=== PATIENT | female | born 1970 | race Caucasian/White ===

== ENCOUNTER → 2016-12-03 | Outpatient (CLI) | payer OTHER ==
[~2016-12-03] VITALS: Ht 161.3 cm; Wt 83.0 kg
[~2016-12-03] MED LIST: ALBU17IN INH; ALBUTEROL SULFATE 2.5 MG/0.5 ML INH NEB SOLN INH ONE; ANOR1AER INH; D5W 1,000 ML IV SCH; EPINEPHrine 1MG/10ML SYRINGE 1.5IN As Ordered ONE; LIDOCAINE 1% MDV 20ML VIAL As Ordered ONE; LIDOCAINE 4% INJ 5 ML AMP As Ordered ONE; LIDOCAINE 4% INJ 5 ML AMP INH ONE; LIDOCAINE VISCOUS 2% SOLN 15ML UDC As Ordered ONE; LISI-538 PO; MIDAZOLAM INJ 2 MG/2 ML VIAL (J2250) As Ordered ONE; MIDAZOLAM INJ 2 MG/2 ML VIAL (J2250) IV ONE; OMEP40CA2 PO; TRAM50TA2 PO; [UNRECOGNIZED DRUG - OTHER]; [UNRECOGNIZED DRUG - OTHER]; fentaNYL 100 MCG/2 ML INJECTION (J3010) As Ordered ONE; fentaNYL 100 MCG/2 ML INJECTION (J3010) IV ONE
--- NOTE | 2016-12-03 11:56 | RO ---
DATE OF PROCEDURE: 12/03/2016 PREPROCEDURE DIAGNOSIS: Abnormal chest CT, right upper lobe mass. POSTPROCEDURE DIAGNOSIS: Abnormal chest CT, right upper lobe mass. FINDINGS: Large obstructing right upper lobe mass. PROCEDURE: Bronchoscopy with endobronchial biopsy and endobronchial ultrasound with fine-needle aspiration. PROCEDURALIST: Dr. Wallace PACKAGE COLLECTOR: None. ANESTHESIA: 360 mg of topical lidocaine, 14 mg IV Versed, 150 mcg IV fentanyl. SPECIMENS OBTAINED: 1. Endobronchial biopsy right upper lobe. 2. Cytobrush right upper lobe. 3. Fine needle aspiration of subcarinal node. ESTIMATED BLOOD LOSS: 5-10 mL REPLACED: None. DRAINS: None. COMPLICATIONS: None. DESCRIPTION OF PROCEDURE: Informed consent was reviewed in the preoperative area. The patient had all of her questions answered. She was brought back to the outpatient procedure area, suite [address], and anesthetization of the posterior pharynx was then initiated was 4% lidocaine. She had a very prominent gag reflex, therefore Cetacaine spray was used. Conscious sedation was initiated. She required large amounts of Versed for sedation. Despite this had significant coughing throughout the procedure. The coughing was so significant it made it difficult for biopsies. Endobronchial biopsies were taken of the right upper lobe lesion. All airways were examined. Marlen was full. Trachea was midline. Right and left mainstem bronchus was normal. There was a large pedunculated mass obstructing the entire right upper lobe. The spur between the right upper lobe and bronchus intermedius was enlarged and splayed. Right middle lobe and right lower lobe were without endobronchial lesions. RB 4 through 10 was normal without abnormality. The left mainstem was normal. LB 1 through 10 was also normal without endobronchial lesions. The bronchoscope was then advanced into the right mainstem bronchus with view of the right upper lobe endobronchial biopsies were performed. There is quite a bit of bleeding. Two doses of epinephrine were applied to the site. Cytology brush was obtained of this area. After a significant difficulty with biopsies due to coughing, I reanesthetized the airway with lidocaine. Again, additional endobronchial biopsies were performed. The bronchoscope was then removed. FNA was attempted once of the subcarinal node. A sample was taken. Due to the amount of coughing and thrashing the patient was doing despite 14 mg of IV Versed and 150 of IV fentanyl, it was deemed that it was better to stop the procedure and if further sampling is required this will need to be done under general anesthesia. There were no observed complications. Postprocedure chest x-ray is pending.
[2016-12-03 12:17] VITALS: BP 135/76
--- NOTE | 2016-12-03 12:49 | REP ---
PORTABLE CHEST X-RAY: Single view. HISTORY: Post bronchoscopy, rule out pneumonia. No comparison chest x-ray. FINDINGS: There is a large opacity in the right apex to the right of the trachea. This may be a mass, possibly pleural-based. There is no evidence of pneumothorax or hydrothorax. Heart is not enlarged. The left lung is clear. IMPRESSION: Large right apical pleuroparenchymal opacity. No evidence of pneumothorax or hydrothorax seen. Signed by Sly Lewis MD 12/03/2016 02:30 P
== END | disposition home or self-care (01) ==
LOC: M OPP 09:31 → EDSTATUS 09:45
PROVIDERS: ATTEND Internal Medicine Pulmonary Disease
DX: C34.11 Malignant neoplasm of upper lobe, right bronchus or lung (principal); J45.909 Unspecified asthma, uncomplicated; J43.1 Panlobular emphysema; M51.9 Unspecified thoracic, thoracolumbar and lumbosacral intervertebral disc disorder; M19.90 Unspecified osteoarthritis, unspecified site; I10 Essential (primary) hypertension; F17.218 Nicotine dependence, cigarettes, with other nicotine-induced disorders; Z88.0 Allergy status to penicillin; Z88.8 Allergy status to other drugs, medicaments and biological substances; Z91.030 Bee allergy status
CPT/HCPCS: 31623; 31652; 71010; 88104; 88172; 88173; 88305; 94640; J2250; J3010

== ENCOUNTER → 2016-12-31 | Outpatient (CLI) | payer OTHER ==
[~2016-12-31] MED LIST changes: -ALBUTEROL SULFATE 2.5 MG/0.5 ML INH NEB SOLN INH ONE; -D5W 1,000 ML IV SCH; -EPINEPHrine 1MG/10ML SYRINGE 1.5IN As Ordered ONE; +ISOVUE-370 76% 100ML VIAL (Q9967) As Ordered ONE; -LIDOCAINE 1% MDV 20ML VIAL As Ordered ONE; -LIDOCAINE 4% INJ 5 ML AMP As Ordered ONE; -LIDOCAINE 4% INJ 5 ML AMP INH ONE; -LIDOCAINE VISCOUS 2% SOLN 15ML UDC As Ordered ONE; -MIDAZOLAM INJ 2 MG/2 ML VIAL (J2250) As Ordered ONE; -MIDAZOLAM INJ 2 MG/2 ML VIAL (J2250) IV ONE; -fentaNYL 100 MCG/2 ML INJECTION (J3010) As Ordered ONE; -fentaNYL 100 MCG/2 ML INJECTION (J3010) IV ONE
--- NOTE | 2016-12-31 10:03 | REP ---
CT of the chest with IV contrast: There are no comparison chest CTs. There is a comparison portable chest dated 12/03/2016. There is a right suprahilar mass extending into the right upper lobe posteromedially. The mass measures about 5 cm craniocaudad by 2.4 cm transversely by 2.2 cm AP. There is right hilar adenopathy. There is mediastinal adenopathy. There is no axillary adenopathy. There are no other masses. There are no infiltrates or effusions. The thoracic aorta is unremarkable. Cardiac size is normal. There is no pericardial effusion. Upper abdomen: There is hepatosteatosis. The visualized portions of the gallbladder, pancreas and spleen are unremarkable. There is no adrenal mass. Impression: Right suprahilar mass with the right hilar and mediastinal adenopathy. Hepatosteatosis. Signed by Kyler Hernandez MD 12/31/2016 09:54 A
== END ==
LOC: M RAD 08:25
PROVIDERS: ATTEND Thoracic Surgery (Cardiothoracic Vascular Surgery)
DX: C7A.090 Malignant carcinoid tumor of the bronchus and lung (principal); K76.0 Fatty (change of) liver, not elsewhere classified
CPT/HCPCS: 71260; Q9967

== ENCOUNTER → 2017-01-02 | Outpatient (CLI) | payer OTHER ==
[~2017-01-02] MED LIST changes: -ISOVUE-370 76% 100ML VIAL (Q9967) As Ordered ONE
--- NOTE | 2017-01-03 09:14 | REP ---
Whole body PET / CT scan: Comparison is the chest CT dated 12/31/2016. Whole body scan is performed from skull base to the upper thighs. Neck and supraclavicular areas: There are no hypermetabolic foci. There is artifactual uptake in the tongue and lingual tonsils. Chest: There is focal hypermetabolic uptake in the patient's known right suprahilar mass. The standard uptake value of this uptake is 5.1, compatible with neoplasm. The linear stranding emanating from this mass into the right upper lobe demonstrates no uptake. There are no foci in the mediastinum or the left hilus. There are no other lung foci. There are no other foci in the chest. Abdomen, pelvis and upper thighs: There are no hypermetabolic foci. There is artifactual droplet of radiotracer along the perineum posteriorly, likely contamination from radio tracer containing urine. Impression: The patient's known right suprahilar mass demonstrates hypermetabolic uptake. The linear stranding emanating from this mass into the right upper lobe demonstrates no uptake. There are no other hypermetabolic foci. The study is performed with 10.2 mCi of F 18 Signed by Kyler Hernandez MD 01/03/2017 09:05 A
== END ==
LOC: M RAD 15:32
PROVIDERS: ATTEND Thoracic Surgery (Cardiothoracic Vascular Surgery)
DX: C7A.090 Malignant carcinoid tumor of the bronchus and lung (principal)
CPT/HCPCS: 78815; A9552

== ENCOUNTER 2017-02-05 07:30 | Inpatient (IN) | payer OTHER ==
[~2017-02-05] VITALS: Ht 162.6 cm; Wt 88.6 kg
[2017-03-05] MEDS ORDERED: LORA10TA2 PO (10:39)
[2017-03-05] MEDS ORDERED: LISI-538 PO (10:39)
[2017-03-05] MEDS ORDERED: CYCL10TA PO (10:39)
[2017-03-05] MEDS ORDERED: OMEP20CA3 PO (11:30)
[2017-03-05 11:46] VITALS: BP 120/64
[2017-03-19] MEDS ORDERED: LR 1,000 ML IV ONE (09:15)
[2017-03-19] MEDS ORDERED: VANCOMYCIN HCL 1,000 MG, VIAL MATE ADAPTER 1 EACH in D5W 250 ML IV ONE (10:00)
[2017-03-19] MEDS ORDERED: MUPIROCIN 2% OINT 22 GM TUBE TOP ONE (10:00)
[2017-03-19] MEDS ORDERED: fentaNYL 100 MCG/2 ML INJECTION (J3010) As Ordered ONE (10:04)
[2017-03-19] MEDS ORDERED: MIDAZOLAM INJ 2 MG/2 ML VIAL (J2250) As Ordered ONE ×2 (10:04→11:43)
[2017-03-19] MEDS ORDERED: BUPIVACAINE HCL 0.5% 30 ML VIAL As Ordered ONE (10:33)
[2017-03-19] MEDS ORDERED: THROMBIN SOLN 20,000 UNITS KIT As Ordered ONE (10:33)
[2017-03-19] MEDS ORDERED: EPINEPHrine 1MG/10ML SYRINGE 1.5IN As Ordered ONE (10:33)
[2017-03-19] MEDS ORDERED: BUPIVACAINE LIPOSOME/PF 1.3% 20 ML VIAL (13.3MG/ML)(EXPAREL) As Ordered ONE (10:34)
[2017-03-19] MEDS ORDERED: MIDAZOLAM INJ 2 MG/2 ML VIAL (J2250) IV ONE ×2 (11:15→11:30)
[2017-03-19] MEDS ORDERED: fentaNYL 100 MCG/2 ML INJECTION (J3010) IV ONE (11:15)
[2017-03-19] MEDS ORDERED: WALLBOXKEY XX PRN (11:30)
[2017-03-19] MEDS ORDERED: METOCLOPRAMIDE INJ 10MG/2ML VIAL (J2765) IV PRN (11:30)
[2017-03-19] MEDS ORDERED: diphenhydrAMINE INJ 50MG/ML VIAL (J1200) IV PRN (11:30)
[2017-03-19] MEDS ORDERED: EPIDURAL/PCA KEYS XX PRN (11:30)
[2017-03-19] MEDS ORDERED: ONDANSETRON 4MG/2ML VIAL (J2405) IV PRN (11:30)
[2017-03-19] MEDS ORDERED: NALOXONE INJ 0.4 MG/1 ML VIAL (J2310) IV PRN (11:30)
[2017-03-19] MEDS ORDERED: fentaNYL 250 MCG/5 ML INJECTION (J3010) As Ordered ONE (11:43)
[2017-03-19] MEDS ORDERED: LIDOCAINE 2% INJ 100 MG/5 ML SDV (FOR ANES.) As Ordered ONE (13:11)
[2017-03-19] MEDS ORDERED: PROPOFOL 200 MG/20 ML VIAL As Ordered ONE (13:11)
[2017-03-19] MEDS ORDERED: METOCLOPRAMIDE INJ 10MG/2ML VIAL (J2765) As Ordered ONE (13:11)
[2017-03-19] MEDS ORDERED: ONDANSETRON 4MG/2ML VIAL (J2405) As Ordered ONE (13:12)
[2017-03-19] MEDS ORDERED: NEOSTIGMINE 1MG/ML 5 ML SYRINGE (J2710) As Ordered ONE (13:12)
[2017-03-19] MEDS ORDERED: BUPIVACAINE HCL 0.25% 30 ML VIAL As Ordered ONE (13:12)
[2017-03-19] MEDS ORDERED: ROCURONIUM BROMIDE 50 MG/5 ML VIAL/SYRINGE As Ordered ONE (13:12)
[2017-03-19] MEDS ORDERED: GLYCOPYRROLATE INJ 0.2 MG/ML 2 ML VIAL As Ordered ONE (13:12)
[2017-03-19] MEDS ORDERED: PHENYLephrine HCL 500 MCG/5 ML (100MCG/ML) SYRINGE (J2370) As Ordered ONE ×2 (15:53→16:29)
[2017-03-19] MEDS ORDERED: ACETAMINOPHEN TAB 650MG DOSE (2X325MG) PO PRN (16:30)
[2017-03-19] MEDS ORDERED: BISACODYL 10 MG SUPP PR PRN (16:30)
[2017-03-19] MEDS ORDERED: NORCO, ANEXSIA 5/325MG TABLET (HYDROcodone/ACETAMINOPHEN) PO PRN (16:30)
[2017-03-19] MEDS ORDERED: LEVALBUTEROL 1.25 MG/0.5 ML CONCENTRATE NEB NEB PRN (16:30)
[2017-03-19] MEDS ORDERED: PERCOCET 5MG/325MG TAB PO PRN ×2 (16:30)
[2017-03-19] MEDS ORDERED: CYCLOBENZAPRINE 10 MG TAB PO PRN (16:30)
[2017-03-19 17:15] LABS: ABG BASE EXCESS -3.4 (-2.0-2.0); ABG HCO3 21.2 MEQ/L (22.0-26.0); ABG PARTIAL PRESSURE O2 96.7 mmHg (75.0-100.0); ABG STANDARD HCO3 21.6 MEQ/L (22.0-26.0); ABG TOTAL CO2 22.3 MEQ/L (22.0-29.0); ABG pH (ARTERIAL) 7.375 UNITS (7.350-7.450)
[2017-03-19] MEDS: KETOROLAC 30 MG/ML VIAL (J1885) IV SCH (17:16)
[2017-03-19 17:20] LABS: BASO % 0.2 % (0.0-1.0); EOS # 0.1 K/mm3 (0.0-0.50); EOS % 0.6 % (0.0-3.0); LARGE UNSTAINED CELL # 0.1 K/mm3 (0.0-0.4); LARGE UNSTAINED CELL % 0.5 % (0.0-4.0); LYMPH # 1.1 K/mm3 (1.5-4.5); MEAN CORPUSCULAR HGB CONC 32.7 g/dl (32.0-36.5); MEAN CORPUSCULAR VOLUME 94.8 fl (80.0-96.0); MONO # 0.4 K/mm3 (0.0-0.8); MONO % 2.4 % (0.0-5.0); NEUTROPHILS # 16.5 K/mm3 (1.8-7.7); NEUTROPHILS % 90.3 % (36.0-66.0); PLATELET COUNT, AUTOMATED 244 k/mm3 (150-450); RED CELL DISTRIBUTION WIDTH 13.3 % (11.5-14.5); WHITE BLOOD COUNT 18.2 K/mm3 (4.0-10.0)
[2017-03-19 17:39] LABS: ANION GAP 6 MEQ/L (8-16); BLOOD UREA NITROGEN 10 MG/DL (7-18); CALCIUM LEVEL 7.9 MG/DL (8.5-10.1); CARBON DIOXIDE LEVEL 23 MEQ/L (21-32); CHLORIDE LEVEL 106 MEQ/L (98-107); CREATININE FOR GFR 0.69 MG/DL (0.55-1.02); GLOMERULAR FILTRATION RATE > 60.0 (>58); GLUCOSE, FASTING 129 MG/DL (70-105); POTASSIUM SERUM 4.7 MEQ/L (3.5-5.1); SODIUM LEVEL 135 MEQ/L (136-145)
[2017-03-19 18:20] VITALS: BP 108/88
[2017-03-19 18:25] VITALS: BP 104/79
[2017-03-19] MEDS: FENTANYL/BUPIVACAINE/NACL BAG 250 ML EPIDURAL SCH (18:25)
[2017-03-19] MEDS: KCL 20MEQ IN D5/NS 1000ML 1,000 ML IV SCH (18:27)
[2017-03-19 19:00] VITALS: BP_SYST 114; BP_SYST 118; BP_DIAS 55; BP_DIAS 72
[2017-03-19 19:15] VITALS: BP_SYST 105; BP_SYST 123; BP_DIAS 67; BP_DIAS 98
[2017-03-19 19:30] VITALS: BP_SYST 106; BP_SYST 124; BP_DIAS 68; BP_DIAS 77
[2017-03-19] MEDS: LEVALBUTEROL 1.25 MG/0.5 ML CONCENTRATE NEB NEB SCH (19:36)
[2017-03-19] MEDS: ADVAIR DISKUS 250/50 INH PWD INH SCH (19:36)
[2017-03-19 20:00] VITALS: BP_SYST 125; BP_SYST 92; BP_DIAS 60; BP_DIAS 88
[2017-03-19] MEDS: HEPARIN SOD (PORCINE) 5000 UNITS/ML VIAL SC SCH (21:17)
[2017-03-19] MEDS: DOCUSATE SODIUM 100 MG CAP PO SCH (21:17)
[2017-03-20] VITALS (9 sets, daily range): BP systolic 100–139; BP diastolic 53–72
[2017-03-20] MEDS: KETOROLAC 30 MG/ML VIAL (J1885) IV SCH ×4 (00:03→18:44)
[2017-03-20] MEDS: LEVALBUTEROL 1.25 MG/0.5 ML CONCENTRATE NEB NEB SCH ×4 (01:16→20:00)
--- NOTE | 2017-03-20 03:19 | REP ---
Clinical: Postoperative assessment. Comparison: 03/05/2017. Findings: Two right-sided chest tubes are identified overlying the upper lung zone. Right upper lobe opacities suggest areas of consolidation/atelectasis. No obvious pneumothorax or pleural effusion. Small amount of subcutaneous emphysema overlies the right lateral chest wall. The left hemithorax is well-aerated and essentially clear. The cardiac silhouette appears normal. Impression: Postoperative changes involving the right hemithorax as described above including upper lobe opacity/atelectasis. Signed by Jaime Calloway MD 03/20/2017 03:10 A
[2017-03-20 04:53] LABS: BASO % 0.2 % (0.0-1.0); EOS % 0.4 % (0.0-3.0); LARGE UNSTAINED CELL # 0.1 K/mm3 (0.0-0.4); LARGE UNSTAINED CELL % 1.2 % (0.0-4.0); LYMPH # 1.6 K/mm3 (1.5-4.5); LYMPH % 14.1 % (24.0-44.0); MEAN CORPUSCULAR HEMOGLOBIN 30.8 pg (27.0-33.0); MEAN CORPUSCULAR HGB CONC 32.9 g/dl (32.0-36.5); MEAN CORPUSCULAR VOLUME 93.8 fl (80.0-96.0); MONO # 0.5 K/mm3 (0.0-0.8); MONO % 4.1 % (0.0-5.0); PLATELET COUNT, AUTOMATED 234 k/mm3 (150-450); RED CELL DISTRIBUTION WIDTH 13.3 % (11.5-14.5); WHITE BLOOD COUNT 11.2 K/mm3 (4.0-10.0)
[2017-03-20 05:08] LABS: ANION GAP 6 MEQ/L (8-16); BLOOD UREA NITROGEN 10 MG/DL (7-18); CALCIUM LEVEL 7.9 MG/DL (8.5-10.1); CARBON DIOXIDE LEVEL 25 MEQ/L (21-32); CHLORIDE LEVEL 106 MEQ/L (98-107); CREATININE FOR GFR 0.65 MG/DL (0.55-1.02); GLOMERULAR FILTRATION RATE > 60.0 (>58); GLUCOSE, FASTING 121 MG/DL (70-105); SODIUM LEVEL 137 MEQ/L (136-145)
[2017-03-20] MEDS: KCL 20MEQ IN D5/NS 1000ML 1,000 ML IV SCH (06:12)
[2017-03-20 06:19] LABS: ABG BASE EXCESS -0.3 (-2.0-2.0); ABG HCO3 23.9 MEQ/L (22.0-26.0); ABG PARTIAL PRESSURE CO2 37.6 mmHg (35.0-45.0); ABG PARTIAL PRESSURE O2 86.6 mmHg (75.0-100.0); ABG STANDARD HCO3 24.3 MEQ/L (22.0-26.0); ABG TOTAL CO2 25.1 MEQ/L (22.0-29.0); ABG pH (ARTERIAL) 7.421 UNITS (7.350-7.450)
--- NOTE | 2017-03-20 08:20 | REP ---
Clinical: Status post right upper lobe lobectomy for carcinoma tumor. Technique: PA and lateral. Comparison: 03/19/2017. Findings: Two right-sided chest tubes and postsurgical changes involving the right hemithorax are again noted. Atelectasis/subtle opacity in the right upper lung zone appears relatively improved compared to prior examination. Cardiac silhouette is normal. Left hemithorax is clear. Skeletal structures are intact. Impression: Postsurgical changes. Opacity in the right upper lung zone appears improved. No new acute process identified. Signed by Jaime Calloway MD 03/20/2017 08:12 A
[2017-03-20] MEDS: ADVAIR DISKUS 250/50 INH PWD INH SCH ×2 (08:53→19:52)
[2017-03-20] MEDS: LISINOPRIL 20 MG TAB PO SCH (09:00)
[2017-03-20] MEDS: MOM 30ML SUSPENSION UDC PO SCH (09:03)
[2017-03-20] MEDS: DOCUSATE SODIUM 100 MG CAP PO SCH ×2 (09:03→21:15)
--- NOTE | 2017-03-20 09:03 | RO ---
DATE OF PROCEDURE: 03/19/2017 PREPROCEDURE DIAGNOSIS: Right upper lobe lesion, abnormal chest CT. POSTPROCEDURE DIAGNOSIS: Right upper lobe, lesion abnormal chest CT. PROCEDURE: Bronchoscopy. SURGEON: Aldo Wallace DO (I was assisting Dr. Rosenberg during his lobectomy.) DESCRIPTION OF PROCEDURE: Patient was already under general anesthesia. Time- out has already been performed. Thoracotomy had been started. I assisted with the bronchoscopy portion only for viewing of the lesion. The P182 bronchoscope was inserted through the right port of the dual-lumen tube. Cetacaine spray was used to lubricate the tube. On viewing the tube was actually displaced. It was replaced into the left mainstem. Balloon inflated. After adequate placement of the dual-lumen tube, I viewed the upper lobe lesion. With manipulation by the surgeon, there was some retraction of the tumor in the airway. I viewed the airway as the surgical stapling was performed over the bronchus. The tumor was well above the bronchus at that point of stapling. After resection it was clear that the tumor was completely contained within the resected lobe. Frozen section confirmed adequate margins. I suctioned all secretions. The bronchoscope was removed. No observed complications. DIPESH
[2017-03-20] MEDS: HEPARIN SOD (PORCINE) 5000 UNITS/ML VIAL SC SCH ×2 (09:04→21:15)
[2017-03-20] MEDS: PANTOPRAZOLE 40MG INJ (PROTONIX) (C9113) IV SCH (09:04)
[2017-03-20] MEDS: LORATADINE 10 MG TAB PO SCH (09:04)
--- NOTE | 2017-03-20 15:09 | RO ---
DATE OF PROCEDURE: 03/19/2017 PREOPERATIVE DIAGNOSIS: Carcinoid tumor orifice right upper lobe. POSTOPERATIVE DIAGNOSIS: Carcinoid tumor orifice right upper lobe. PROCEDURE: Right upper lobectomy and mediastinal node lymphadenectomy, five level rib block and bronchoscopy times two at the beginning and at the end of the case. Intercostal muscle graft. Also, intraoperative bronchoscopy by Dr. Wallace. SURGEON: Beni Rosenberg MD SET UP AND CHARGER: Landry Gauthier Jr., MD ANESTHESIA: FINDINGS: Patient was known to have a carcinoid tumor at the orifice of the right upper lobe or originating from the posterior segmental bronchus. The concern prior to the procedure was that the tumor was invading the mainstem bronchus or at least the take off of the upper lobe bronchus and was going to need a sleeve resection. Therefore all preparations were made for a sleeve resection, although it did not come to pass. The patient did have a normal branching tracheobronchial tree with the tumor occluding the upper lobe bronchus but originating more distally. When I did the initial bronchoscopy, it was somewhat movable, but was adherent to the posterior rim of the right mainstem bronchus. A adhesive desmoplastic pattern adhesion could be seen. It would not move from this adhesion. She did have copious secretions having only stopped smoking a week ago. Her preoperative carboxyhemoglobin was 3. After completion of the vascular ligations, the bronchus intermedius was completely exposed and as I pulled up on the right upper lobe take off, the tumor could be seen to be receding backwards more distally. Therefore the bronchus was stapled flush and I then accompanied the specimen up to the lab and the margins were clear. The postoperative bronchoscopy revealed copious amounts of secretions again and these were all suction aspirated. PROCEDURE: Under satisfactory general anesthesia, under single lumen tube endotracheal tube intubation, the bronchoscope was placed into the tracheobronchial treat. There was a normal branching pattern and the only endobronchial lesion seen was the carcinoid tumor in the right upper lobe take off. It was described above. Biopsy portions were taken and the tumor was somewhat movable around most of its brim except for the desmoplastic reaction to the posterior rim of the bronchus. The patient was then turned into the left lateral decubitus position and prepped and draped in the usual sterile fashion. A generous posterolateral incision was made and the latissimus dorsi divided as was the slip of the serratus anterior. An intercostal muscle graft was then taken down by first incision the periosteum on the 6th and 5th ribs and then scraping the periosteum off of that with an Biju elevator. The vein and artery could be seen just underneath the 5th rib. After the intercostal graft in saline, and after ligating it with #0 silk suture distally, it was tucked in the chest for use later on. The ribs were then spread and the confluence of fissures was found. There were numerous adhesions in the confluence of fissures and these were all taken down. These were all inflammatory adhesions. The pulmonary artery was found at the confluence and dissected free. The posterior mediastinal pleura was then incised and the take off of the right upper lobe along with the bronchus intermedius was visualized. A clamp was then placed over the basilar segmental lower lobe artery through the posterior mediastinal pleural and the fissure was completed with an Anatone EAMON stapler. Having ablated the posterior fissure, the pulmonary artery was dissected more proximally. The anterior hilum was then dissected to expose both the superior and inferior pulmonary veins. The take off of the right middle lobe vein was ascertained. After more dissection, upper lobe A was divided. The tyre finisher and examiner fissure could then be completed by passing a right angle clamp and then a vessel loop from lateral to anterior followed by an Anatone stapler. This then left the upper lobe vascular anatomy with good visualization. The posterior ascending branch was dissected free and divided by use of a vascular EAMON stapler. Likewise the upper lobe hilar branch was taken in toto with the same stapler. The entire dissection was not at all straight forward in that the upper lobe would not deflate secondary to the obstruction of the bronchus from the tumor. It did require lots of manipulation of the lung itself trying to get proper approaches and angles. Dr. Gauthier was particularly helpful in exposure of the tissues and great vessels in order to make the operation a safe procedure. After finally dividing all of the vasculature, the bronchus was left. The nodes were swept up towards the bronchus. Dr. Wallace then did an intraoperative bronchoscopy to show us the endobronchial tumor. It was gratifying that the tumor would move posteriorly when I pulled on the upper lobe bronchus and a TA 4.8 stapler was then placed across the upper lobe. It looked as if the tumor moved posteriorly, I do not know why, and the lung was reinflated after closing the stapler. Lower and middle lobes were reinflated. The stapler was fired and the bronchus was divided distally. The specimen was delivered into the field and sent for pathology for both microscopic and gross examination. I accompanied the specimen to the pathology lab while Dr. Gauthier stayed in the room. The margins were clear. Attention was then turned to the superior mediastinal space where the azygous vein was divided and a large mass of lymph nodes was removed by use of the Harmonic scalpel to seal the lymphatics. The entire space was cleared posteriorly from the trachea anteriorly to the superior vena cava and medially to the ascending aorta. After receiving adequate hemostasis, TISSEEL glue was placed within the mediastinal space. Two chest tubes were placed, one curved #28 and a straight #24 anteriorly. A five level rib block consisting of 0.50% Marcaine and Exparel was then injected. The previously harvested intercostal muscle graft was then tacked to the bronchial stump. Pericostal sutures were placed and then tied sequentially from anterior to posterior with the most posterior one being left more loose so that the costal graft would not be crushed. The extrathoracic muscles the latissimus dorsi and serratus anterior were then closed with running #0 Vicryl suture and each muscle was injected with Exparel and Marcaine. The subcutaneous tissue was injected with Exparel and Marcaine and closed with running #3-0 Vicryl sutures and the skin was closed with #3-0 Monocryl subcuticular sutures. The patient was reintubated with a single lumen tube and bronchoscopy was again undertaken. The patient did have copious amounts of secretions at both sides but particularly on the left. These were suction aspirated and mucous plugs were removed. The patient tolerated the procedure well and left the operating room in satisfactory condition for the recovery room.
[2017-03-20] MEDS: FENTANYL/BUPIVACAINE/NACL BAG 250 ML EPIDURAL SCH (15:25)
[2017-03-21] VITALS (7 sets, daily range): BP systolic 110–136; BP diastolic 56–74
[2017-03-21] MEDS: KETOROLAC 30 MG/ML VIAL (J1885) IV SCH ×5 (00:13→23:36)
[2017-03-21] MEDS: LEVALBUTEROL 1.25 MG/0.5 ML CONCENTRATE NEB NEB SCH ×4 (01:23→20:00)
[2017-03-21 04:41] LABS: BASO % 0.2 % (0.0-1.0); EOS # 0.2 K/mm3 (0.0-0.50); EOS % 2.3 % (0.0-3.0); LARGE UNSTAINED CELL # 0.1 K/mm3 (0.0-0.4); LARGE UNSTAINED CELL % 1.1 % (0.0-4.0); LYMPH # 1.8 K/mm3 (1.5-4.5); LYMPH % 19.2 % (24.0-44.0); MEAN CORPUSCULAR HEMOGLOBIN 31.2 pg (27.0-33.0); MEAN CORPUSCULAR HGB CONC 33.5 g/dl (32.0-36.5); MEAN CORPUSCULAR VOLUME 93.2 fl (80.0-96.0); MONO # 0.3 K/mm3 (0.0-0.8); MONO % 3.7 % (0.0-5.0); NEUTROPHILS # 6.5 K/mm3 (1.8-7.7); NEUTROPHILS % 73.4 % (36.0-66.0); PLATELET COUNT, AUTOMATED 189 k/mm3 (150-450); RED CELL DISTRIBUTION WIDTH 13.6 % (11.5-14.5); WHITE BLOOD COUNT 8.9 K/mm3 (4.0-10.0)
[2017-03-21 04:54] LABS: ANION GAP 5 MEQ/L (8-16); BLOOD UREA NITROGEN 7 MG/DL (7-18); CARBON DIOXIDE LEVEL 29 MEQ/L (21-32); CHLORIDE LEVEL 105 MEQ/L (98-107); CREATININE FOR GFR 0.61 MG/DL (0.55-1.02); GLOMERULAR FILTRATION RATE > 60.0 (>58); GLUCOSE, FASTING 96 MG/DL (70-105); POTASSIUM SERUM 3.8 MEQ/L (3.5-5.1); SODIUM LEVEL 139 MEQ/L (136-145)
[2017-03-21] MEDS: ADVAIR DISKUS 250/50 INH PWD INH SCH ×2 (07:48→19:33)
[2017-03-21] MEDS: LORATADINE 10 MG TAB PO SCH (09:30)
[2017-03-21] MEDS: DOCUSATE SODIUM 100 MG CAP PO SCH ×2 (09:30→19:57)
[2017-03-21] MEDS: LISINOPRIL 20 MG TAB PO SCH (09:30)
[2017-03-21] MEDS: MOM 30ML SUSPENSION UDC PO SCH (09:30)
[2017-03-21] MEDS: PANTOPRAZOLE 40MG INJ (PROTONIX) (C9113) IV SCH (09:30)
[2017-03-21] MEDS: HEPARIN SOD (PORCINE) 5000 UNITS/ML VIAL SC SCH ×2 (09:31→20:43)
--- NOTE | 2017-03-21 12:54 | IPN ---
DATE: 03/20/2017 This is now the first postoperative day for Mrs. Jo status post a right upper lobectomy. She has had a stable night of surgery and her pain is being well controlled with the epidural. She is sitting up in a chair. Her vital signs show a maximum temperature (t-max) of 97.3 with a heart rate that ranges between 83 and 74 in a sinus rhythm with a respiratory rate of 16 to 20 without the use of accessory muscles, who is 95% saturated on room air and whose blood pressure is ranging between 124/72 to 130/71. Her intake and output over the past 24 hours has been recorded as 2610 in and 900 out for a positivity of 1710 mL. She has put out 375 mL from the chest tube and there is no air leak. Weight today is 83.9 kg compared to 80 kg yesterday. PHYSICAL EXAMINATION: LUNGS: She has some occasional rhonchi, which clear with coughing. Essentially underneath she has normal vesicular sounds. CARDIAC EXAM: Without murmurs, clicks, gallops or rubs. I cannot feel her point of maximum impulse (PMI). S1, S2 are normal. ABDOMEN: Soft, nontender. Bowel sounds positive. There is no hepatomegaly. No costovertebral angle tenderness. EXTREMITIES: Show no pretibial edema. No calf tenderness. No differential swelling of the upper extremities. SKIN: Warm, dry and perfused without cyanosis or mottling, including that of the nail beds and knees. NECK: Supple. There is no jugular venous distention. No subcutaneous emphysema. Trachea is midline. MOUTH: Shows her mucous membranes to be pink and moist. Lips and commissures without lesions. There is no thrush. EYES: Show her pupils to be equal and reactive. Extraocular motion intact. Sclerae anicteric. NEUROLOGIC: Shows II through XII intact with gross motor and gross sensation intact. Gait is not tested. PSYCHIATRIC: Shows her to be awake and alert, oriented times three with appropriate mood and affect and conversational. Her white count today is 11.2 with a hemoglobin and hematocrit of 14.7 and 44., respectively with a platelet count of 234. Differential shows 80% neutrophils, 14% lymphocytes, 4% monocytes. There are no immature forms. No toxic granulations. Her electrolytes are normal with a BUN and creatinine of 10 and 0.65, glucose of 121 and calcium of 7.9. Blood gases this morning showed a pH of 7.42, PCO2 of 37, and PO2 of 86. Base excess is 0.3. Her chest x-ray today shows her lung fully expanded to the chest wall. I see no infiltrates. She has some atelectatic changes in the upper hemithorax, probably the superior basilar segment of the lower lobe. . Costophrenic angles are sharp. Chest tubes are in good place. IMPRESSION: 1. Carcinoid tumor, pathology pending. Clear margins by frozen section yesterday. 2. Prior tobacco abuse. 3. Chronic obstructive pulmonary disease (COPD). 4. Hypertension. 5. Gastroesophageal reflux disease (GERD). PLAN AND DISCUSSION: I will not diurese her today. I will transfer her to the progressive care unit (PCU) today. She will continue on chest tube suction. I am quite gratified at her postoperative course. I will await the final pathology, which will probably come back tomorrow, and I will review the specimens and slides tomorrow. DIPESH
[2017-03-21] MEDS: FENTANYL/BUPIVACAINE/NACL BAG 250 ML EPIDURAL SCH (13:25)
--- NOTE | 2017-03-21 18:15 | REP ---
CHEST, PA AND LATERAL: 03/21/2017. Comparison: 03/20 and 03/19/2017. Clinical history: Status post right upper lobectomy for malignant carcinoid tumor of the bronchi and lung. Findings: There are two right-sided chest tubes with some volume loss in the right hemithorax, elevation of the diaphragm, fullness of the hilar region and clips about the right hilum. One of the chest tubes is at the level of the hilum and anterior while the more posterior chest tube is higher and extends above the hilum towards the level of the innominate artery at the medial upper lung zone. There is a faint pleural line evident from an apparent loculated apical pneumothorax on the right side. I do not see a similar finding on the left. I cannot confirm this finding on yesterday's study. Some perihilar atelectatic change in the upper lung zone is again seen, perhaps slightly improved. The left lung was clear. There is no definite effusion. Streaky perihilar densities are noted on the right again. There is an epidural catheter overlying the mid thoracic region. No other findings or interval change. Impression: 1. Small loculated apical pneumothorax on the right, but with some slight improvement in the density of the atelectatic change in the right upper lung zone. Chest tubes in the right hemithorax are unchanged. Volume loss as before with streaky perihilar densities. 2. Epidural catheter unchanged. The left lung remains clear. Signed by Mert Palomares MD 03/22/2017 08:38 P
[2017-03-22] MEDS: LEVALBUTEROL 1.25 MG/0.5 ML CONCENTRATE NEB NEB SCH ×4 (02:00→20:00)
[2017-03-22 04:00] VITALS: BP 96/52
[2017-03-22 05:25] LABS: BASO % 0.3 % (0.0-1.0); EOS # 0.4 K/mm3 (0.0-0.50); EOS % 5.1 % (0.0-3.0); LARGE UNSTAINED CELL # 0.1 K/mm3 (0.0-0.4); LARGE UNSTAINED CELL % 0.8 % (0.0-4.0); LYMPH # 1.6 K/mm3 (1.5-4.5); MEAN CORPUSCULAR HEMOGLOBIN 30.1 pg (27.0-33.0); MEAN CORPUSCULAR HGB CONC 32.5 g/dl (32.0-36.5); MEAN CORPUSCULAR VOLUME 92.7 fl (80.0-96.0); MONO # 0.2 K/mm3 (0.0-0.8); NEUTROPHILS # 5.2 K/mm3 (1.8-7.7); NEUTROPHILS % 69.8 % (36.0-66.0); PLATELET COUNT, AUTOMATED 203 k/mm3 (150-450); RED CELL DISTRIBUTION WIDTH 13.5 % (11.5-14.5); WHITE BLOOD COUNT 7.4 K/mm3 (4.0-10.0)
[2017-03-22 05:39] LABS: ANION GAP 6 MEQ/L (8-16); BLOOD UREA NITROGEN 9 MG/DL (7-18); CALCIUM LEVEL 7.9 MG/DL (8.5-10.1); CARBON DIOXIDE LEVEL 29 MEQ/L (21-32); CHLORIDE LEVEL 103 MEQ/L (98-107); CREATININE FOR GFR 0.56 MG/DL (0.55-1.02); GLOMERULAR FILTRATION RATE > 60.0 (>58); GLUCOSE, FASTING 96 MG/DL (70-105); POTASSIUM SERUM 3.6 MEQ/L (3.5-5.1); SODIUM LEVEL 138 MEQ/L (136-145)
[2017-03-22] MEDS: KETOROLAC 30 MG/ML VIAL (J1885) IV SCH ×3 (05:48→18:34)
[2017-03-22] MEDS: ADVAIR DISKUS 250/50 INH PWD INH SCH ×2 (07:07→20:05)
[2017-03-22 08:00] VITALS: BP 124/64
[2017-03-22] MEDS: DOCUSATE SODIUM 100 MG CAP PO SCH ×2 (09:00→21:00)
[2017-03-22] MEDS: MOM 30ML SUSPENSION UDC PO SCH (09:00)
[2017-03-22] MEDS: PANTOPRAZOLE 40MG INJ (PROTONIX) (C9113) IV SCH (09:09)
[2017-03-22] MEDS: HEPARIN SOD (PORCINE) 5000 UNITS/ML VIAL SC SCH ×2 (09:09→21:25)
[2017-03-22] MEDS: LORATADINE 10 MG TAB PO SCH (09:10)
[2017-03-22] MEDS: LISINOPRIL 20 MG TAB PO SCH (09:10)
--- NOTE | 2017-03-22 09:38 | REP ---
CHEST, TWO VIEWS: Two views of the chest are performed and compared to prior study of 03/21/2017. Two right chest tubes remain in place. I do not see a significant pneumothorax. There are stable postsurgical changes on the right. Left lung remains clear. IMPRESSION: Postsurgical changes on the right with two chest tubes in place. No significant pneumothorax. Signed by Kyler De La Torre MD 03/22/2017 03:12 P
[2017-03-22 12:00] VITALS: BP 118/69
[2017-03-22] MEDS: FENTANYL/BUPIVACAINE/NACL BAG 250 ML EPIDURAL SCH (14:08)
[2017-03-22 16:00] VITALS: BP 112/54
--- NOTE | 2017-03-22 17:47 | IPN ---
DATE: 03/22/2017 This is now the third postoperative day for Mrs. Jo. She is status post right upper lobectomy. Her pain is being well controlled with the epidural. There is still some residual shoulder pain. She has been up and walking. Her vital signs show a T-max of 98.4 with a heart rate that ranges between 90 and 85 in a sinus rhythm. Respiratory rate of 18 to 20 without the use of accessory muscles who is 98 to 99% saturated on room air and whose blood pressure is ranging between 129/58 to 96/52. Her intake and output over the past 24 hours has been recorded as 1650 in and 2221 out for a negativity of 570 mL. She has put out 195 mL out of the chest tube and there is no air leak. Weight today is 84.9 kg compared to 83.5 kg yesterday. On physical examination her lungs show normal vesicular sounds on either side. I hear to wheezes, rhonchi or rales. Percussion note is full to the diaphragm. Cardiac exam is without murmurs, clicks, gallops or rubs. I cannot feel her point of maximal impulse (PMI). S1 and S2 are normal. Abdomen is soft and nontender. Bowel sounds are positive. There is no hepatomegaly. No costovertebral angle (CVA) tenderness. Extremities show no pretibial edema. No calf tenderness. No differential swelling of the upper extremities. Skin is warm, dry and perfused without cyanosis or mottling including that of the nail beds and the knees. Neck is supple. There is no jugular venous distention. No subcutaneous emphysema. Trachea is midline. Mouth shows her mucous membranes to be pink and moist. Lips and commissures without lesions. No thrush. Eyes show her pupils to be equal, reactive. Extraocular muscles intact. Sclera anicteric. Neuro shows II through XII intact. Gross motor and gross sensation intact. Gait is also intact. Psychiatric shows her to be awake, alert and oriented times three with appropriate mood, affect and conversational. White count today is 7.4 with hemoglobin and hematocrit of 12.7 and 39.1 with a platelet count of 203. Differential shows 69% neutrophils, 21% lymphocytes, 3% monocytes. There are no immature forms. No toxic granulations. Electrolytes are normal with a BUN and creatinine of 9 and 0.56, glucose is 96 and a calcium of 7.9. Her chest x-ray today shows small collection of subpleural air. Otherwise, the lung is fully expanded to the chest wall. I see no infiltrates. There is no subcutaneous emphysema. Chest tubes are in good place. Costophrenic angles are sharp. IMPRESSION: 1. Postoperative day #3, status post right upper lobectomy. 2. Carcinoid tumor. Final pathology pending. 3. Prior tobacco abuse. 4. Chronic obstructive pulmonary disease (COPD). 5. Hypertension. 6. Gastroesophageal reflux disease. PLAN AND DISCUSSION: I have gone over the slices with Dr. Moon of pathology. All the nodes are negative including the parenchymal, hilar and mediastinal nodes. I do not have the final measurements of the tumor, but is going to be no more than a T1B and probably a T1A, still making her stage 1A disease. She has a collection of subpleural air, but there is no subcutaneous emphysema and there is no air leak and I will not place her back on suction, but rather left the lung reexpand on its own. Depending upon her output tomorrow I will probably remove her chest tubes and plan for discharge in the next few days. I will not diurese her.
--- NOTE | 2017-03-22 18:16 | IPN ---
DATE: 03/21/2017 This is now the second postoperative day for Mrs. Jo. She has had a stable night and her pain is being well controlled with the epidural. There is no air leak from her chest tube. She has put out too much fluid to even consider removing the chest tube. Her vital signs show a T-max of 97.3 with a heart rate that ranges between 77 and 101 in a sinus rhythm with a respiratory rate of 16 to 28 without the use of accessory muscles. I think the one observation of 28 is spurious. She is 94 to 98% saturated on room air and her blood pressure is ranging between 136/66 to 110/56. Her intake and output over the past 24 hours has been recorded at 3230 in and 3240 out for near equality. She has put out 540 mL from the chest tube and there is no air leak. She weighs 83.5 kg today compared to 83.9 kg yesterday. On physical examination her right lung shows scattered rhonchi and rales, most of which clear with coughing. Percussion note is full to the diaphragm. Cardiac exam is without murmurs, clicks, gallops or rubs. I cannot feel her point of maximal impulse (PMI). S1 and S2 are normal. Abdomen is soft and nontender. Bowel sounds are positive. There is no hepatomegaly. No costovertebral angle (CVA) tenderness. Extremities show no pretibial edema. No calf tenderness. No differential swelling of the upper extremities. Skin is warm, dry and perfused without cyanosis or mottling including that of the nail beds and the knees. Neck is supple. There is no jugular venous distention. No subcutaneous emphysema. Trachea is midline. Mouth shows her mucous membranes to be pink and moist. Lips and commissures without lesions. No thrush. Eyes show her pupils to be equal, reactive. Extraocular muscles intact. Sclera anicteric. Neuro shows II through XII intact. Gross motor and gross sensation intact. Gait is not tested. Psychiatric shows her to be awake, alert and oriented times three with appropriate mood, affect and conversational. Her white count today is 8.9 with hemoglobin and hematocrit of 13.2 and 39.5. Platelet count is 189 and differential shows 70% neutrophils, 19% lymphocytes and 3% monocytes. No immature forms, no toxic granulations. Her electrolytes are normal today with a BUN and creatinine of 7 and 0.61, a glucose of 96 and a calcium of 8.0. There are no blood gasses on her today. Her chest x-ray shows her lung fully expanded to the chest wall. Chest tubes are in good place. There are no infiltrates and her costophrenic angles are sharp. IMPRESSION: 1. Postoperative day #2, status post right upper lobectomy. 2. Carcinoid tumor. Clear margins by frozen section. Final pathology pending. 3. Prior tobacco abuse. 4. COPD. 5. Hypertension. 6. Gastroesophageal reflux disease. PLAN AND DISCUSSION: She has already had transfer to PCU. I will take her off suction today. She has put a little bit too much out of the chest tube, but I will not diurese her as she looks to be diuresing on her own.
[2017-03-22 20:00] VITALS: BP 143/61
[2017-03-22 23:59] VITALS: BP 117/62
[2017-03-23] MEDS: KETOROLAC 30 MG/ML VIAL (J1885) IV SCH ×4 (00:28→18:43)
[2017-03-23] MEDS: LEVALBUTEROL 1.25 MG/0.5 ML CONCENTRATE NEB NEB SCH ×4 (01:09→20:00)
[2017-03-23 04:45] VITALS: BP 119/70
[2017-03-23 05:14] LABS: BASO % 0.3 % (0.0-1.0); EOS # 0.5 K/mm3 (0.0-0.50); EOS % 7.3 % (0.0-3.0); LARGE UNSTAINED CELL # 0.1 K/mm3 (0.0-0.4); LARGE UNSTAINED CELL % 1.1 % (0.0-4.0); LYMPH # 1.6 K/mm3 (1.5-4.5); LYMPH % 24.4 % (24.0-44.0); MEAN CORPUSCULAR HEMOGLOBIN 30.9 pg (27.0-33.0); MEAN CORPUSCULAR HGB CONC 33.3 g/dl (32.0-36.5); MEAN CORPUSCULAR VOLUME 92.7 fl (80.0-96.0); MONO # 0.2 K/mm3 (0.0-0.8); MONO % 3.6 % (0.0-5.0); NEUTROPHILS % 63.3 % (36.0-66.0); PLATELET COUNT, AUTOMATED 227 k/mm3 (150-450); RED CELL DISTRIBUTION WIDTH 13.5 % (11.5-14.5); WHITE BLOOD COUNT 6.3 K/mm3 (4.0-10.0)
[2017-03-23 05:38] LABS: ANION GAP 7 MEQ/L (8-16); BLOOD UREA NITROGEN 12 MG/DL (7-18); CALCIUM LEVEL 8.6 MG/DL (8.5-10.1); CARBON DIOXIDE LEVEL 29 MEQ/L (21-32); CHLORIDE LEVEL 104 MEQ/L (98-107); CREATININE FOR GFR 0.63 MG/DL (0.55-1.02); GLOMERULAR FILTRATION RATE > 60.0 (>58); GLUCOSE, FASTING 113 MG/DL (70-105); POTASSIUM SERUM 3.5 MEQ/L (3.5-5.1); SODIUM LEVEL 140 MEQ/L (136-145)
[2017-03-23 08:00] VITALS: BP 124/70
[2017-03-23] MEDS: ADVAIR DISKUS 250/50 INH PWD INH SCH ×2 (08:14→20:23)
[2017-03-23] MEDS: MOM 30ML SUSPENSION UDC PO SCH (09:00)
[2017-03-23] MEDS: LISINOPRIL 20 MG TAB PO SCH (09:15)
[2017-03-23] MEDS: LORATADINE 10 MG TAB PO SCH (09:15)
[2017-03-23] MEDS: DOCUSATE SODIUM 100 MG CAP PO SCH ×2 (09:15→20:51)
[2017-03-23] MEDS: PANTOPRAZOLE 40MG TAB (PROTONIX) PO SCH (09:15)
--- NOTE | 2017-03-23 09:57 | REP ---
CHEST PA AND LATERAL: 03/23/2017. COMPARISON: 03/22/2017, 03/21/2017, 03/20/2017. CLINICAL HISTORY: Status post right upper lobectomy for carcinoid tumor. FINDINGS: Two right chest tubes are again seen and there are clips at the right hilum. The epidural catheter is again noted. Volume loss with elevation of the right diaphragm again seen and hazy atelectatic change about the hilum noted. The left lung well inflated and without definite infiltrate or effusion. Chest tube position is unchanged. There is no evidence of residual or recurrent pneumothorax. IMPRESSION: 1. Right chest tubes after lobectomy with postoperative changes as described. No residual or recurrent pneumothorax superimposed acute infiltrate. Minor perihilar atelectatic changes in that right lung. Signed by Mert Palomares MD 03/23/2017 07:50 P
[2017-03-23] MEDS: HEPARIN SOD (PORCINE) 5000 UNITS/ML VIAL SC SCH ×2 (10:07→20:52)
[2017-03-23] MEDS ORDERED: PERCOCET 5MG/325MG TAB PO PRN (11:00)
[2017-03-23 12:00] VITALS: BP 129/68
[2017-03-23] MEDS: PERCOCET 5MG/325MG TAB PO PRN (13:36)
--- NOTE | 2017-03-23 14:37 | IPN ---
DATE: 03/23/2017 This is now the fourth postoperative day for Mrs. Jo. She has had a stable 24 hours. Her pain is being well controlled with the epidural. Her vital signs show a T-max of 98.2 with a heart rate that ranges between 96 and 85 in a sinus rhythm, respiratory rate that is constant at 20, who is 97% saturated on room air and whose blood pressure is ranging between 112/54 to 143/61. Her intake and output the past 24 hours has been recorded as 2400 in and 2160 out for a positivity of 240 mL. She has put 125 mL out the chest tube. There is no air leak. Weight today is 87.5 kg compared to 84.9 kg yesterday. On physical examination, her lungs show equal breath sounds on either side. I hear no wheezs, rhonchi or rales. Percussion note is full to the diaphragm. Cardiac Exam: Without murmurs, clicks, gallops, or rubs. I cannot feel her PMI. S1, S2 are normal. Abdomen: Soft. Nontender. Bowel sounds are positive. There is no hepatomegaly. No costovertebral angle (CVA) tenderness. Extremities: Show no pretibial edema. No calf tenderness. No differential swelling of the upper extremities. Neck: Supple. There is no jugular venous distention. No subcutaneous emphysema. Trachea is midline. Skin: Warm, dry and perfused. Without cyanosis or mottling, including that of the nail beds and knees. Mouth: Shows her mucous membranes to be pink and moist. Lips and commissures are without lesions. There is no thrush. Eyes: Show her pupils to be equal and reactive. Extraocular movements intact. Sclerae nonicteric. Neurologic: Shows II-XII intact along with gross motor and gross sensation intact. Gait is intact. Psychiatric shows her to be awake, alert, and oriented times three with appropriate mood and affect and conversational. Her white count today is 6.3 with hemoglobin and hematocrit of 12.9 and 38.6 with a platelet count of 227. Differential shows 63% neutrophils, 24% lymphocytes, 3% monocytes. There are no immature forms and no toxic granulations. Her chemistries show normal electrolytes with BUN and creatinine of 12 and 0.63, glucose of 113, and a calcium of 8.6. There are no blood gases on her today. Her chest x-ray today shows the same subpulmonic air as was yesterday. It is unchanged. There is a slight amount of subcutaneous emphysema in the upper hemithorax. It is slightly more than yesterday. There is no other subcutaneous emphysema. She has obligate volume loss from the lobectomy on the right side. There are no infiltrates posteriorly on the lateral film. IMPRESSION: 1. Postoperative day #4 status post right upper lobectomy. 2. Carcinoid tumor, final pathology pending. All nodes negative. Probably will be Stage IA. 3. Prior tobacco abuse. 4. Chronic obstructive pulmonary disease (COPD). 5. Hypertension. 6. Gastroesophageal reflux disease. PLAN AND DISCUSSION: I will remove her chest tubes today. Will wean her epidural and discontinue her [place]. If all goes well, hopefully, will discharge her tomorrow. Because of the intercostal muscle flap, I suspect that she is going to have less pain; however, she is going to have dermatomal numbness in the distribution of the fifth intercostal space just under her breast. The staple line is quite flush with the main stem bronchus. I am always worried about postoperative bronchopleural fistula with failure of the suture line. It is protected by an intercostal muscle flap.
[2017-03-23 16:00] VITALS: BP 125/59
[2017-03-23 20:00] VITALS: BP 136/65
[2017-03-23 23:59] VITALS: BP 163/76
[2017-03-24] MEDS: PERCOCET 5MG/325MG TAB PO PRN ×3 (00:12→11:42)
[2017-03-24] MEDS: LEVALBUTEROL 1.25 MG/0.5 ML CONCENTRATE NEB NEB SCH ×2 (02:23→08:00)
[2017-03-24 04:45] VITALS: BP 154/72
[2017-03-24] MEDS: KETOROLAC 30 MG/ML VIAL (J1885) IV SCH ×2 (05:11)
[2017-03-24 05:48] LABS: ANION GAP 5 MEQ/L (8-16); BLOOD UREA NITROGEN 11 MG/DL (7-18); CALCIUM LEVEL 8.3 MG/DL (8.5-10.1); CARBON DIOXIDE LEVEL 30 MEQ/L (21-32); CHLORIDE LEVEL 105 MEQ/L (98-107); CREATININE FOR GFR 0.52 MG/DL (0.55-1.02); GLOMERULAR FILTRATION RATE > 60.0 (>58); GLUCOSE, FASTING 96 MG/DL (70-105); SODIUM LEVEL 140 MEQ/L (136-145)
[2017-03-24 05:50] LABS: BASO % 0.4 % (0.0-1.0); EOS # 0.5 K/mm3 (0.0-0.50); EOS % 7.2 % (0.0-3.0); LARGE UNSTAINED CELL # 0.1 K/mm3 (0.0-0.4); LARGE UNSTAINED CELL % 1.1 % (0.0-4.0); LYMPH # 1.3 K/mm3 (1.5-4.5); LYMPH % 18.7 % (24.0-44.0); MEAN CORPUSCULAR HEMOGLOBIN 30.9 pg (27.0-33.0); MEAN CORPUSCULAR HGB CONC 33.3 g/dl (32.0-36.5); MEAN CORPUSCULAR VOLUME 92.8 fl (80.0-96.0); MONO # 0.3 K/mm3 (0.0-0.8); MONO % 4.7 % (0.0-5.0); NEUTROPHILS # 4.8 K/mm3 (1.8-7.7); NEUTROPHILS % 67.9 % (36.0-66.0); PLATELET COUNT, AUTOMATED 225 k/mm3 (150-450); RED CELL DISTRIBUTION WIDTH 13.1 % (11.5-14.5); WHITE BLOOD COUNT 7.1 K/mm3 (4.0-10.0)
[2017-03-24] MEDS: ADVAIR DISKUS 250/50 INH PWD INH SCH (07:38)
[2017-03-24 08:00] VITALS: BP 161/77
[2017-03-24] MEDS: PANTOPRAZOLE 40MG TAB (PROTONIX) PO SCH (08:53)
[2017-03-24] MEDS: LORATADINE 10 MG TAB PO SCH (08:53)
[2017-03-24 08:54] VITALS: BP 161/77
[2017-03-24] MEDS: LISINOPRIL 20 MG TAB PO SCH (08:54)
[2017-03-24] MEDS: DOCUSATE SODIUM 100 MG CAP PO SCH (08:54)
[2017-03-24] MEDS: HEPARIN SOD (PORCINE) 5000 UNITS/ML VIAL SC SCH (08:54)
[2017-03-24] MEDS: MOM 30ML SUSPENSION UDC PO SCH (08:57)
--- NOTE | 2017-03-24 09:05 | REP ---
CHEST PA AND LATERAL: 03/24/2017. CLINICAL HISTORY: Status post right upper lobectomy for carcinoid tumor of the bronchus. COMPARISON: 03/23/2017, 03/22/2017, 03/21/2017. FINDINGS: The two right chest tubes have been removed. Volume loss in the right hemithorax again noted with surgical clips about the hilum. Perihilar atelectatic and interstitial changes are noted. I do not see recurrent or residual pneumothorax. There is some mild right lateral pleural thickening evident. No gross effusion. Streaky atelectatic changes in the perihilar regions on the right are noted. The left lung remains grossly clear. The cardiomediastinal silhouette unchanged. Bones intact. IMPRESSION: 1. Status post removal of the chest tubes from the right hemithorax without residual or recurrent pneumothorax. Some streaky and patchy atelectatic changes perihilar region, volume loss in the right hemithorax, lateral pleural thickening and no evidence of visible effusion. Left lung remains clear. Signed by Mert Palomares MD 03/24/2017 10:49 A
[2017-03-24] MEDS ORDERED: PERCOCET PO (10:39)
--- NOTE | 2017-03-24 12:53 | DSES ---
DATE OF ADMISSION: 03/19/2017 DATE OF DISCHARGE: 03/24/2017 DISCHARGE DIAGNOSES: 1. Postoperative day #5 status post right upper lobectomy. 2. Carcinoid tumor with all nodes negative, [id number] or stage IA. 3. Prior tobacco abuse. 4. Chronic obstructive pulmonary disease (COPD). 5. Hypertension. 6. Gastroesophageal reflux disease. HOSPITAL COURSE: Patient is a 47-year-old white female who developed a cough in early spring and which persisted and did not respond to antibiotics. Chest x-ray showed consolidation of right upper lobe, and she eventually was taken to bronchoscopy, where she was found to have a typical carcinoid tumor. Carcinoid tumor looked to emanate from the posterior segment and occluded the right upper lobe bronchus. There were some desmoplastic attachments of the tumor to the junction of the right mainstem and the right upper lobe bronchus. Her past medical history was significant for COPD, nicotine dependence and gastroesophageal reflux disease, and hypertension. Her pulmonary function tests showed an FEV1 of 2.07, which was 72% of predicted, along with a diffusion capacity which was 84% of predicted. Patient was taken to the operating room, and all preparations were made for a bronchoplastic sleeve resection. Intraoperative bronchoscopy during the resection showed that the tumor was able to push away from the mainstem bronchus orifice. She, therefore, underwent initial right upper lobectomy. Frozen section margins were negative for tumor. An intercostal muscle flap had already been taken down in preparation for the possible bronchoplastic procedure and was used to cover the stump. As the margins were clear, we did not proceed with the bronchoplastic procedure. The patient had a benign postoperative course and is being discharged on the fifth postoperative day. Chest tubes were removed yesterday. There was a small air leak the first 24 hours. She is being discharged today on her home medications, which include Ventolin two puffs every 4 hours as needed wheezing, lisinopril 20 mg every day, loratadine 10 mg every day, and omeprazole 20 mg every day. I have stopped her tramadol and have substituted Percocet for pain control every 4 hours as needed pain. Discharge hemoglobin and hematocrit are 12.3 and 37.0 with a discharge white count of 7.1. Discharge BUN and creatinine are 11 and 0.52 with normal electrolytes. She will return to see me in 1 week with a chest x-ray in postoperative followup. Edited: evens 03/25/2017 [id number]
== END 2017-03-24 12:10 | disposition home or self-care (01) | DRG 120 ==
LOC: M OR 03-19 09:12 → M ICU 03-19 18:20 → M PCU 03-21 22:24
PROVIDERS: ADMIT Thoracic Surgery (Cardiothoracic Vascular Surgery); ATTEND Thoracic Surgery (Cardiothoracic Vascular Surgery)
PROC: 0B9K8ZZ Drainage of Right Lung, Via Natural or Artificial Opening Endoscopic (ICD-10-PCS; 2017-03-19)
PROC: 0W9900Z Drainage of Right Pleural Cavity with Drainage Device, Open Approach (ICD-10-PCS; 2017-03-19)
PROC: 0BU Respiratory System, Supplement (ICD-10-PCS; 2017-03-19)
PROC: 0KBH0ZZ Excision of Right Thorax Muscle, Open Approach (ICD-10-PCS; 2017-03-19)
PROC: 0BTC0ZZ Resection of Right Upper Lung Lobe, Open Approach (ICD-10-PCS; principal; 2017-03-19 11:00)
PROC: 07B70ZX Excision of Thorax Lymphatic, Open Approach, Diagnostic (ICD-10-PCS; 2017-03-19 11:00)
DX: C34.11 Malignant neoplasm of upper lobe, right bronchus or lung (principal); J93.82 Other air leak; J44.9 Chronic obstructive pulmonary disease, unspecified; I10 Essential (primary) hypertension; K21.9 Gastro-esophageal reflux disease without esophagitis; Z87.891 Personal history of nicotine dependence

== ENCOUNTER → 2017-02-21 | Outpatient (CLI) | payer OTHER ==
[~2017-02-21] MED LIST changes: +ISOVUE-370 76% 100ML VIAL (Q9967) As Ordered ONE
--- NOTE | 2017-02-21 16:37 | REP ---
CT study of the chest with IV contrast: History: Carcinoid tumor of the bronchus. Comparison CT study is from 12/31/2016. Comparison PET-CT study 01/02/2017. CT contrast dose: 75 mL of Isovue 370. CT findings: The postobstructive collapse and consolidation in the apical segment of the right upper lobe is improved compared to the 10/09/2016 prior study and similar in degree to the 02/21/2017 study. The right perihilar mass obstructing the right upper lobe bronchus seen previously is again noted. This measures 2.0 x 2.0 x 2.3 cm. Right hilar, precarinal and pretracheal lymph nodes are again seen. These are unchanged from the 12/31/[address] The largest of these is the precarinal node measuring 11 mm in short axis x 19 mm in long axis dimension. A subcarinal node is seen also unchanged. Small bilateral hilar nodes are visible none definitely enlarged. No pleural or pericardial effusion is seen. Fatty infiltration of the liver is noted. No adrenal lesion is observed. No bony destructive lesion is appreciated. No other pulmonary parenchymal finding. Impression: The biopsy-proven carcinoid tumor obstructing the right upper lobe bronchus is again seen, 2.3 cm in greatest diameter, unchanged from recent prior study. There is some postobstructive atelectasis and consolidation in the apical segment right upper lobe above the lesion. This is unchanged. There are multiple mediastinal lymph nodes seen unchanged from most recent prior study. Signed by Sly Lewis MD 02/21/2017 04:47 P
== END ==
LOC: M RAD 15:29
PROVIDERS: ATTEND Thoracic Surgery (Cardiothoracic Vascular Surgery)
DX: C7A.090 Malignant carcinoid tumor of the bronchus and lung (principal)

== ENCOUNTER → 2017-03-05 | Outpatient (CLI) | payer OTHER ==
[~2017-03-05] MED LIST changes: +CYCL10TA PO; -ISOVUE-370 76% 100ML VIAL (Q9967) As Ordered ONE; +LORA10TA2 PO; +OMEP20CA3 PO
[2017-03-05 12:10] LABS: ABG BASE EXCESS -2.9 (-2.0-2.0); ABG DEVICE ROOM AIR; ABG HCO3 20.6 MEQ/L (22.0-26.0); ABG PARTIAL PRESSURE O2 94.3 mmHg (75.0-100.0); ABG STANDARD HCO3 22.1 MEQ/L (22.0-26.0); ABG TOTAL CO2 21.7 MEQ/L (22.0-29.0); ABG pH (ARTERIAL) 7.414 UNITS (7.350-7.450)
[2017-03-05 12:29] LABS: MEAN CORPUSCULAR HEMOGLOBIN 31.2 pg (27.0-33.0); MEAN CORPUSCULAR HGB CONC 33.6 g/dl (32.0-36.5); MEAN CORPUSCULAR VOLUME 92.8 fl (80.0-96.0); RED CELL DISTRIBUTION WIDTH 13.6 % (11.5-14.5); WHITE BLOOD COUNT 8.8 K/mm3 (4.0-10.0)
[2017-03-05 12:37] LABS: INR 0.93
[2017-03-05 12:45] LABS: ANION GAP 8 MEQ/L (8-16); BLOOD UREA NITROGEN 7 MG/DL (7-18); CALCIUM LEVEL 8.7 MG/DL (8.5-10.1); CARBON DIOXIDE LEVEL 27 MEQ/L (21-32); CHLORIDE LEVEL 103 MEQ/L (98-107); CREATININE FOR GFR 0.55 MG/DL (0.55-1.02); GLOMERULAR FILTRATION RATE > 60.0 (>58); GLUCOSE, FASTING 78 MG/DL (70-105); SODIUM LEVEL 138 MEQ/L (136-145)
--- NOTE | 2017-03-05 16:21 | ECGEPIP ---
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
--- NOTE | 2017-03-06 07:00 | REP ---
Clinical: History of lung cancer. Chest pain. Technique: PA and lateral. Comparison: 12/03/2016. Findings: Ill-defined area of opacity in the right upper lobe is identified and cannot be further characterized based on appearance or comparison with prior examination. Chronic-appearing mid to lower lobe changes are suggested. No further acute consolidation, effusion, or pneumothorax. Cardiac silhouette is normal. Impression: Ill-defined area/opacity in the right upper lobe at the site of prior consolidation. Differential diagnosis may include continued active process or chronic scarring. Signed by Jaime Calloway MD 03/06/2017 06:51 A
== END ==
LOC: M ADMPAT 10:27
PROVIDERS: ATTEND Thoracic Surgery (Cardiothoracic Vascular Surgery)
DX: Z01.818 Encounter for other preprocedural examination (principal); R07.9 Chest pain, unspecified; R91.8 Other nonspecific abnormal finding of lung field

== ENCOUNTER → 2017-03-18 | Outpatient (CLI) | payer OTHER ==
[~2017-03-18] MED LIST changes: +PERCOCET PO
[2017-03-18 14:38] LABS: ABG BASE EXCESS 0.1 (-2.0-2.0); ABG HCO3 22.9 MEQ/L (22.0-26.0); ABG PARTIAL PRESSURE CO2 32.6 mmHg (35.0-45.0); ABG PARTIAL PRESSURE O2 103.7 mmHg (75.0-100.0); ABG STANDARD HCO3 24.6 MEQ/L (22.0-26.0); ABG TOTAL CO2 23.9 MEQ/L (22.0-29.0); ABG pH (ARTERIAL) 7.465 UNITS (7.350-7.450)
== END ==
LOC: M LAB 12:52
PROVIDERS: ATTEND Thoracic Surgery (Cardiothoracic Vascular Surgery)
DX: C7A.090 Malignant carcinoid tumor of the bronchus and lung (principal)

== ENCOUNTER → 2017-04-08 | Outpatient (CLI) | payer OTHER ==
--- NOTE | 2017-04-08 09:36 | REP ---
CHEST, TWO VIEWS: HISTORY: Carcinoid tumor. COMPARISON: 03/24/2017 There is loss of volume in the right hemithorax. There is elevation of the right hemidiaphragm. Linear densities are present in the right upper lobe consistent with scar. There is blunting of the right costophrenic angle due to pleural thickening. The left lung is clear. The heart is normal in size. The pulmonary vasculature is normal in appearance. The bony structure is intact. IMPRESSION: Right upper lobe scarring. Signed by Drake Elias MD 04/08/2017 09:45 A
== END ==
LOC: M SMT 09:01
PROVIDERS: ATTEND Thoracic Surgery (Cardiothoracic Vascular Surgery)
DX: C7A.090 Malignant carcinoid tumor of the bronchus and lung (principal)

== ENCOUNTER → 2017-05-13 | Outpatient (CLI) | payer OTHER ==
--- NOTE | 2017-05-13 09:26 | REP ---
PA and lateral chest: Comparison 04/08/2017. There is elevation of the right hemidiaphragm and there are surgical clips in the right paratracheal area. These findings are unchanged and may represent right upper lobectomy. The right lung is otherwise clear. The left lung is clear. Cardiac size normal. Rosy, mediastinum, and bony thorax are unremarkable. Impression: Findings are compatible with right upper lobectomy. Otherwise, negative PA and lateral chest. Sign taking Signed by Kyler Hernandez MD 05/13/2017 09:18 A
== END ==
LOC: M SMT 08:43
PROVIDERS: ATTEND Thoracic Surgery (Cardiothoracic Vascular Surgery)
DX: C7A.090 Malignant carcinoid tumor of the bronchus and lung (principal)

== ENCOUNTER → 2019-08-24 | Outpatient (CLI) | payer OTHER ==
[~2019-08-24] MED LIST changes: +LORA-243 PO; -LORA10TA2 PO; -OMEP20CA3 PO; +OMEP20CA4 PO; -OMEP40CA2 PO; +OMEP40CA97 PO
[2019-08-24 17:10] LABS: BLOOD UREA NITROGEN 12 MG/DL (7-18); CREATININE FOR GFR 0.86 MG/DL (0.55-1.30); GLOMERULAR FILTRATION RATE > 60.0 (>58)
== END ==
LOC: M PLALAB 13:59
PROVIDERS: ATTEND Internal Medicine Pulmonary Disease
DX: C7A.090 Malignant carcinoid tumor of the bronchus and lung (principal)

== ENCOUNTER → 2020-02-15 | Outpatient (CLI) | payer OTHER ==
[~2020-02-15] MED LIST changes: +ALBU83IN INH; +ALL10TAB29 PO; +BUPR150T5 PO; +CYCL-707 PO; -CYCL10TA PO; +MONT10TA4 PO; +MUCI600T31 PO; +MULTCAP PO; +OMEP1CAP73 PO; -OMEP20CA4 PO; +PROAAER10 INH
== END ==
LOC: M LABSMTC 11:16
PROVIDERS: ATTEND Anesthesiology
DX: Z01.818 Encounter for other preprocedural examination (principal); Z11.59 Encounter for screening for other viral diseases
CPT/HCPCS: C8903; U0002

== ENCOUNTER → 2020-04-12 | Outpatient (CLI) | payer OTHER ==
[~2020-04-12] MED LIST changes: -ALL10TAB29 PO; +ATOR40TA75 PO; +CETI-24 PO
--- NOTE | 2020-04-13 08:59 | REP ---
REASON FOR EXAM: Followup hilar adenopathy. Prior PET/CT 01/02/[address] examinations of the chest 07/13/2019 and 11/03/2019 both from outside institutions have been reviewed. After the intravenous administration of 9 millicuries of FDG-18, triplane whole body PET/CT was performed from the skull base to the mid thigh. The patient has a history of carcinoid tumor status post right upper lobectomy. The right hilar adenopathy seen on the CT scan of 11/03/2019 and seen on today's CT component of the PET/CT is hypermetabolic with maximal SUV valve of 4.5. The subcarinal adenopathy is non-hypermetabolic. In fact, there are no other areas of abnormal hypermetabolic activity seen in the neck, chest, abdomen or pelvis. IMPRESSION: Hypermetabolic right hilar adenopathy as described above. Electronically Signed by Dominic Carpenter DO 04/13/2020 12:53 P
== END ==
LOC: M PLARAD 09:26
PROVIDERS: ATTEND Internal Medicine Pulmonary Disease
DX: C7A.090 Malignant carcinoid tumor of the bronchus and lung (principal)
CPT/HCPCS: 78815; A9552

== ENCOUNTER → 2020-11-17 | Outpatient (CLI) | payer OTHER ==
[~2020-11-17] MED LIST changes: +ISOVUE-370 76% 100ML VIAL As Ordered ONE; -LISI-538 PO; +LISI20TA33 PO; +MONT10TA10 PO; -MONT10TA4 PO
--- NOTE | 2020-11-18 07:06 | REP ---
INDICATION: MALIGNANT TUMOR BRONCHUS/LUNG COMPARISON: 11/03/2019 TECHNIQUE: Axial contrast enhanced images from the thoracic inlet to the upper abdomen with coronal and sagittal reformations using 75 ml Isovue 370 intravenous contrast material. This CT examination was performed using the following dose reduction techniques: Automated exposure control, adjustment of mA and/or kv according to the patient's size, and use of iterative reconstruction technique. FINDINGS: Patient is noted to be status post right upper lobe lobectomy with postsurgical changes extending from the suprahilar region along the posterior pleural space. The bilateral lung salcido demonstrate hazy nonspecific changes primarily involving the perihilar and right lower lobe region without discrete focal consolidation. No obvious significant nodule or mass lesion is identified. Right hilar and subcarinal adenopathy is relatively similar to prior examination and without further enlargement. Skeletal structures demonstrate healed right rib fractures. Limited upper abdomen demonstrates hepatosteatosis and normal appearing bilateral adrenal glands. IMPRESSION: 1. Right hilar and subcarinal lymph nodes relatively unchanged and without significant enlargement. 2. Lung salcido demonstrate postsurgical and chronic appearing changes without consolidation or obvious nodule/mass lesion. Follow-up regarding above-mentioned hypermetabolic adenopathy is recommended. <Electronically signed by Jaime Calloway > 11/18/20 [id number]
== END ==
LOC: M RAD 12:19
PROVIDERS: ATTEND Internal Medicine Pulmonary Disease
DX: C7A.090 Malignant carcinoid tumor of the bronchus and lung (principal)
CPT/HCPCS: 71260; Q9967

== ENCOUNTER → 2021-12-28 | Outpatient (CLI) | payer OTHER ==
[~2021-12-28] MED LIST changes: +LEVOTAB10 PO; -MONT10TA10 PO; +MONT10TA97 PO; +MULT-90 PO; +OMEP40CA4 PO; -OMEP40CA97 PO
== END ==
LOC: M RAD 13:27
PROVIDERS: ATTEND Internal Medicine Hematology & Oncology
DX: C34.90 Malignant neoplasm of unspecified part of unspecified bronchus or lung (principal)
CPT/HCPCS: 71260; Q9967

== ENCOUNTER → 2023-08-27 | Outpatient (CLI) | payer OTHER ==
[~2023-08-27] MED LIST changes: +ALBU2.5V10; +ALBU2.5V10 INH; -ALBU83IN INH; +BUPR-71 PO; -BUPR150T5 PO; +CALC1TAB26 PO; +GABA-1171; +GASTROGRAFIN SOLUTION 30ML ONE; +HYDR12.55; -ISOVUE-370 76% 100ML VIAL As Ordered ONE; +ISOVUE-370 76% 100ML VIAL ONE; +MAGN200T PO; +MELO15TA28; +NOXI1TAB PO; +OMEG10002 PO; +PROB250C PO; +PROBCAP14 PO; +SYMB80INH; +VENTAER
== END ==
LOC: M PLAIMG 08:43
PROVIDERS: ATTEND Internal Medicine Hematology & Oncology
DX: C34.90 Malignant neoplasm of unspecified part of unspecified bronchus or lung (principal); K74.60 Unspecified cirrhosis of liver; K76.6 Portal hypertension

== ENCOUNTER → 2025-05-14 | Outpatient (CLI) | payer OTHER ==
[~2025-05-14] MED LIST changes: -ALBU2.5V10; +CALCCAP4 PO; +CYCL-707; +FAMO40TA3 PO; -GABA-1171; +GABA-1171 PO; -GASTROGRAFIN SOLUTION 30ML ONE; +HYDR-3490; -HYDR12.55; +HYDR12.55 PO; +ISOVUE-370 76% 100 ML VIAL As Ordered ONE; -ISOVUE-370 76% 100ML VIAL ONE; +LIDO1PAD; -MELO15TA28; +MELO15TA28 PO; +POTA1TAB23; -SYMB80INH; +SYMB80INH INH; -VENTAER; +VENTAER INH
== END ==
LOC: M RAD 14:48
PROVIDERS: ATTEND Specialist
DX: C34.90 Malignant neoplasm of unspecified part of unspecified bronchus or lung (principal)
CPT/HCPCS: 71260; Q9967